=== PATIENT | male | born 1945 | race Caucasian/White ===

== ENCOUNTER 2017-01-01 15:54 | Emergency (ER) | payer OTHER ==
[~2017-01-01] VITALS: Ht 180.3 cm; Wt 108.8 kg
[2017-01-01 15:57] VITALS: BP 171/81
[2017-01-01 17:00] LABS: EOSINOPHIL (%) 1.3 % (0-5); EOSINOPHIL COUNT 0.1 K/uL (0-0.3); HEMATOCRIT 41.4 % (38.0-50.0); IMMATURE GRANULOCYTE (%) 0.6 % (0.0-0.7); IMMATURE GRANULOCYTE COUNT 0.1 K/uL; INSTRUMENT ABS NEUTROPHIL CT 6.5 K/uL; LYMPHOCYTE COUNT 2.5 K/uL (1.0-2.8); MCH 30.4 PG (29.0-34.0); MCHC 33.6 G/DL (30.0-36.0); MCV 90.6 FL (86-99); MEAN PLAT.VOLUME 9.5 uM^3 (9.0-12.4); MONOCYTE (%) 5.3 % (3-12); MONOCYTE COUNT 0.5 K/uL (0-0.8); NEUTROPHIL (%) 66.5 % (45-76); NEUTROPHIL COUNT 6.5 K/uL (1.8-6.4); PLATELET COUNT 231 K/uL (156-360); RBC DIS.WIDTH-CV 13.5 % (11.8-14.6); RBC DIS.WIDTH-SD 45.1 % (39-53); RED BLOOD COUNT 4.57 M/uL (4.00-5.50); WHITE BLOOD COUNT 9.8 K/uL (4.1-10.2)
[2017-01-01 17:14] LABS: CHLORIDE 110 mEq/L (99-109); POTASSIUM 4.8 mEq/L (3.7-5.4); SODIUM 140 mEq/L (136-147)
[2017-01-01 17:17] LABS: GLUCOSE 103 mg/dL (70-99)
[2017-01-01 17:18] LABS: ANION GAP 10 MEQ/L (2-14); TOTAL BILIRUBIN 0.4 mg/dL (0.0-1.0)
[2017-01-01 17:20] LABS: ALKALINE PHOSPHATASE 91 IU/L (3-129); GFR ESTIMATE (CALCULATED) 42 mL/min/
[2017-01-01 17:21] LABS: UREA NITROGEN (BUN) 27 mg/dL (9-23)
[2017-01-01 17:22] LABS: DIRECT BILIRUBIN 0.1 mg/dL (0.0-0.3)
[2017-01-02 12:18] LABS: HPCA INDEX 0.23
[2017-01-02 12:19] LABS: AHBS INDEX 0.07; HEPATITIS B SURFACE ANTIBODY Nonreactive; HIV INDEX 0.17; HIV-1/2 AB/AG COMBO Nonreactive
== END 2017-01-01 17:07 | disposition home or self-care (01) ==
LOC: EME 15:54
PROVIDERS: Nurse Practitioner Family
DX: S61.237A Puncture wound without foreign body of left little finger without damage to nail, initial encounter (principal); W46.1XXA Contact with contaminated hypodermic needle, initial encounter; Z87.891 Personal history of nicotine dependence
CPT/HCPCS: 80048; 80076; 85025; 86703; 86706; 86803; 99281; 99283